=== PATIENT | male | born 1995 | race Caucasian/White ===

== ENCOUNTER 2025-08-09 19:56 | Emergency (ER) | payer OTHER, SELFPAY ==
[2025-08-09 19:59] VITALS: BP 150/100
[2025-08-09 20:18] LABS: Urine Character Clear (Clear)
[2025-08-09 20:19] LABS: Hematocrit 44.8 % (39.0-52.0); Hemoglobin 15.3 g/dL (13.0-18.0); Mean Corp Hgb Conc. 34.2 g/dL (33.0-37.0); Mean Corpuscular Volume 85.2 fL (80.0-94.0); Nucleated Red Blood Cells % 0 % (-); Platelet Count 359 10^3/uL (130-400); Red Cell Dist. Width 12.1 % (11.5-14.5)
[2025-08-09 20:23] LABS: Urine Squamous Cell 0-2 /LPF (Few)
[2025-08-09 20:24] LABS: Urine White Cell 0-2 /HPF (0-5)
[2025-08-09 20:32] LABS: ALT (SGPT) 28 U/L (0-50); AST (SGOT) 27 U/L (17-59); Albumin 5.4 g/dl (3.5-5.0); Alkaline Phosphatase 64 U/L (38-126); Blood Urea Nitrogen 11 mg/dl (9-20); Calcium 10.2 mg/dl (8.4-10.2); Carbon Dioxide 26 mmol/L (22-30); Chloride 100 mmol/L (98-107); Glucose 101 mg/dl (70-99); Lipase 33 U/L (23-300); Potassium 3.7 mmol/L (3.5-5.1); Sodium 140 mmol/L (135-145); Total Protein 9.6 g/dl (6.3-8.2); eGFR > 60.00
--- NOTE | 2025-08-09 20:50 | ED.GENMED ---
History of Present Illness
General
Chief Complaint: Abdominal Pain
Source: patient
Exam Limitations: none
Time Seen by Provider: 08/09/25 20:31
Nursing documentation reviewed up to this point in time: agreed with
History of Present Illness
History of Present Illness:
Note:
CHIEF COMPLAINT(S)
Left-sided abdominal discomfort for seven days.
HISTORY OF PRESENT ILLNESS
The patient is a 30-year-old male who presented with left-sided abdominal discomfort persisting for seven days. The discomfort is localized to the left side, described as non-excruciating and more of a discomfort rather than pain. There is no
radiation to the back. The patient denies pain during urination and reports normal daily bowel movements every morning after coffee. He reports occasional microscopic blood in the urine, a long-standing, intermittent issue since adulthood, though he
currently denies visible blood in the urine. There are no other urinary symptoms or changes. He denies fever, vomiting, or any significant change in the intensity or location of the discomfort. Approximately two years ago, the patient had a similar
episode which resolved spontaneously, and a computed tomography (CT) scan performed during that time showed no significant findings. There is a possibility of kidney stones, but the symptoms are atypical for severe ureteral stones, as the pain is
described as mild. A recent physical examination did not reveal a hernia, although this was suggested by a previous healthcare provider at an urgent care visit.
The patient reports a past diagnosis of COVID-19, though it is not clear if this is relevant to the current symptoms.
PAST MEDICAL AND SURGICAL HISTORY
The patient has a past removal of wisdom teeth and nasal cauterization performed in childhood.
SOCIAL HISTORY
The patient reports rare alcohol consumption.
PHYSICAL EXAM
General: Alert, no acute distress.
Skin: Warm, dry.
Head: Normocephalic, atraumatic.
Neck: Supple, trachea midline.
Eyes, Ears, Nose, Mouth, and Throat: Oral mucosa moist.
Cardiovascular: Normal peripheral perfusion, No edema.
Respiratory: Respirations are non-labored.
Gastrointestinal: Abdomen nondistended; no tenderness upon palpation of left side. No palpable hernia detected.
Back: Normal range of motion; Normal alignment.
Musculoskeletal: Normal range of motion, normal strength.
Neurological: Alert and oriented to person, place, time, and situation; No focal neurological deficit observed.
Psychiatric: Cooperative, appropriate mood & affect.
PLAN
The plan is to perform a computed tomography (CT) scan of the abdomen to rule out any significant underlying pathology, such as kidney stones or muscle strain. The patient is agreeable to the imaging study.
DIFFERENTIAL DIAGNOSIS
The Differential Diagnosis includes, in no particular order and is not limited to:
1. Kidney stones
2. Muscle strain
3. Urinary tract infection
4. Hernia
5. Gastrointestinal issues
6. Abdominal wall pathology
7. Renal disease
8. Ureteral obstruction
9. Viral or bacterial infection
10. Referred pain from another site
Note:
CARE-UPDATE
08/09/25 - 23:24
CT abdomen and pelvis inconclusive but suggests possible right renal calculus. Pain improved with analgesics. Plan to discharge with instructions for hydration and follow-up with urology for further evaluation.
Disposition:
SUMMARY OF ENCOUNTER
The patient, a 30-year-old male, presented to the emergency department with left-sided abdominal discomfort persisting for seven days. The discomfort is localized and mild, with no significant change in intensity or location. He denies urinary
symptoms, fever, or systemic symptoms. A CT scan performed was inconclusive but suggested a possible right renal calculus. Pain improved with analgesics.
DISPOSITION
Discharge
ASSESSMENT
The presentation suggests a possible right renal calculus as indicated by the CT scan findings, even though the symptoms are atypical for severe ureteral stones.
PLAN
The patient will be discharged with instructions for hydration and to follow up with urology for further evaluation.
INDEPENDENT REVIEW OF LABS AND INTERPRETATION OF TESTS
My independent interpretation of the CT abdomen and pelvis is inconclusive, but it suggests a possible right renal calculus.
PATIENT EDUCATION AND COUNSELING
The patient was informed about maintaining hydration and monitoring for any changes in symptoms. He was advised to follow up with his primary care physician and urology for further evaluation.
FOLLOW-UP INSTRUCTIONS
The patient is advised to follow up with a urologist for further evaluation.
MEDICATION RECONCILIATION
The patient received analgesics for pain management during the visit.
MEDICAL DECISION MAKING
-Complexity of Data Reviewed: Chronic conditions affecting care include the past episode of abdominal discomfort with a previous CT scan showing no significant findings. Differential diagnosis includes kidney stones, muscle strain, urinary tract
infection, hernia, gastrointestinal issues, abdominal wall pathology, renal disease, ureteral obstruction, viral or bacterial infection, and referred pain from another site.
-Data:
Category 1
My independent interpretation of the CT scan indicates a possible right renal calculus.
-Risk:
Prescription medication was prescribed and analgesics were administered for pain management.
Consideration of Admission/Observation: Escalation of care including admission/observation was considered given the complexity and risk of the patients presenting complaint. However, ultimately, the patient is safe for outpatient management with
close follow-up. Reasoning: Work-up is reassuring, does not reveal any acute life/organ-threatening processes, patients symptoms are well controlled upon reevaluation, reexamination is reassuring, vitals are stable, patient agreeable with discharge,
reliable for follow-up.
DIAGNOSIS
Right Renal Calculus (ICD-10: N20.0)
Phy Exam
Physical Exam
Physical Exam:
.
Course
Orders/Labs/Results
Orders:
Orders
08/09/25 20:11
Complete Blood Count/With Diff Urgent
Comprehensive Metabolic Panel Urgent
Lipase Urgent
Urinalysis Reflex To Culture Urgent
Date Specimen was Collected: 08/09/25
Time Specimen was Collected: 20:00
Urine Microscopic Reflex Cult Urgent
08/09/25 20:49
CT Abd/pel Without Iv Or Oral Urgent
Comment:
Reason For Exam: right flank pain, hematuria
Abnormal Lab Results
08/09/25
20:11
Absolute Monos (auto) 0.8 H 10^3/uL
(0.1-0.6)
Glucose 101 H mg/dl
(70-99)
Total Protein 9.6 H g/dl
(6.3-8.2)
Albumin 5.4 H g/dl
(3.5-5.0)
Urine Ketones 2+ A
(Negative)
Ur Occult Blood Reflex 2+ A
(Negative)
Urine RBC 3-6 A /HPF
(0-2)
Urine Bacteria (Reflex) Few A
(Negative)
Urine Albumin (Reflex) 1+ A
(Neg - Trace)
08/09/25 20:11
08/09/25 20:11
Vital Signs
Initial and Last Documented VS:
Initial Vital Signs
Temp Pulse Resp Pulse Ox
99.5 F 111 19 99
08/09/25 19:58 08/09/25 19:58 08/09/25 19:58 08/09/25 19:58
Last Documented Vital Signs
Temp Pulse Resp BP Pulse Ox
99.5 F 93 17 162/97 97
08/09/25 19:58 08/09/25 21:15 08/09/25 21:15 08/09/25 23:04 08/09/25 23:04
*Pulse Oximetry
SaO2: 99
Patient hypoxic: no
*Critical Care Note
Total Time (30-74mins, 75-104mins- exclusive of procedures): Not Applicable
ED Attending Note
-
Portions of this chart may have been created with voice recognition software.� Occasional wrong word or��sound alike� substitutions may have occurred due to the inherent limitations of voice recognition software.
Discharge Plan
Departure
Patient Disposition: Home (Routine Discharge)
Date of Disposition: 08/09/25
Time of Disposition: 23:26
Patient with high blood pressure during this ER visit?: Yes
Condition: Good
Discharge Problem:
Acute flank pain, Hematuria
Instructions: Blood in the urine (hematuria) in adults, Flank pain - ED (DC), BLOOD PRESSURE
Referrals:
MARY BUTTERFIELD [Other]
Paulo Mary MD [Active, Urology] - Call in 1-3 days for appt
Interventions
Interventions:
*Risk Screen - Suicide Last Done: 08/09/25 19:59
*General Assessment Last Done: 08/09/25 19:59
*Neglect/Abuse Screening Last Done: 08/09/25 19:59
*ED- Fall Risk Assessment Last Done: 08/09/25 21:13
*ED COVID-19 Vaccine History Last Done: 08/09/25 19:59
*ED Influenza Vaccine History Last Done: 08/09/25 19:59
FQ-Esmgry-Hbrvubjtue Assessment Last Done: 08/09/25 21:13
Discharge Date and Time
Print Language: LEBANESE
[2025-08-09 20:58] VITALS: BMI 24.5
[2025-08-09 21:00] VITALS: BP 145/100
[2025-08-09 23:04] VITALS: BP 162/97
[2025-08-09 23:39] VITALS: BP 112/97
== END 2025-08-09 23:40 | disposition home or self-care (01) ==
LOC: EMR 19:56
PROVIDERS: Emergency Medicine; EMERGENCY PHYSICIAN Emergency Medicine
DX: R10.9 Unspecified abdominal pain (principal); R31.9 Hematuria, unspecified
CPT/HCPCS: 99284; 74176; 80053; 81003; 81015; 83690; 85025